=== PATIENT | female | born 1985 | race Caucasian/White ===

== ENCOUNTER 2016-10-07 13:37 | Emergency (ER) | payer OTHER, MEDICAID ==
[2016-10-07 14:16] VITALS: BP 102/63
--- NOTE | 2016-10-07 15:08 | UC ---
Throat Pain/Nasal Antony HPI - HPI Summary HPI Summary: pain on right side of face,sinus congestion, fever and 8 weeks - History of Current Complaint Chief Complaint: UCGeneralIllness Stated Complaint: FLU COMPLAINT Time Seen by Provider: 10/07/16 14:30 Hx Obtained From: Patient Hx Last Menstrual Period: 07/31/16 ?: Yes Onset/Duration: Sudden Onset, Lasting Days Severity: Moderate Pain Intensity: 6 Pain Scale Used: 0-10 Numeric Associated Signs & Symptoms: Positive: Sinus Discomfort, Nasal Discharge, Fever - Epiglottits Risk Factors Epiglottis Risk Factors: Negative - Allergies/Home Medications Allergies/Adverse Reactions: Allergies Allergy/AdvReac Type Severity Reaction Status Date / Time Latex Allergy Mild Hives Verified 03/30/16 08:33 Morphine Allergy Mild Hives/ Verified 03/30/16 08:33 VOMITING Bacitracin [From Neosporin] Allergy Hives Verified 03/30/16 08:33 Hydrocortisone Allergy Hives Verified 03/30/16 08:33 Neomycin [From Neosporin] Allergy Hives Verified 03/30/16 08:33 Polymyxin B [From Neosporin] Allergy Hives Verified 03/30/16 08:33 Home Medications: Home Medications Folic Acid TAB* [Folvite TAB*] 1 tab PO 10/07/16 [History] PMH/Surg Hx/FS Hx/Imm Hx Previously Healthy: Yes Endocrine History Of: Denies: Diabetes, Thyroid Disease Cardiovascular History Of: Denies: Cardiac Disorders, Hypertension Respiratory History Of: Denies: COPD, Asthma GI/ History Of: Denies: Ulcer - Surgical History Surgical History: Yes Surgery Procedure, Year, and Place: T&A - Family History Known Family History: Positive: Hypertension - Social History Alcohol Use: None Substance Use Type: None Smoking Status (MU): Former Smoker Type: Cigarettes Amount Used/How Often: 1/2 PPD Length of Time of Smoking/Using Tobacco: 15 YEARS Have You Smoked in the Last Year: Yes - Immunization History Most Recent Influenza Vaccination: declined Most Recent Tetanus Shot: pt declined during ; may do post- Most Recent Pneumonia Vaccination: n/a Review of Systems Constitutional: Fever, Fatigue Skin: Negative Eyes: Negative ENT: Nasal Discharge Respiratory: Cough Cardiovascular: Negative Gastrointestinal: Negative Genitourinary: Negative Motor: Negative Neurovascular: Negative Musculoskeletal: Negative Neurological: Headache Psychological: Negative All Other Systems Reviewed And Are Negative: Yes Physical Exam Triage Information Reviewed: Yes Appearance: Well-Nourished, Ill-Appearing, Pain Distress Vital Signs: Initial Vital Signs Temp 100.5 F 10/07/16 14:10 Pulse 78 10/07/16 14:10 Resp 18 10/07/16 14:10 BP 102/63 10/07/16 14:10 Pulse Ox 100 10/07/16 14:10 Vital Signs Reviewed: Yes Eye Exam: Normal Eyes: Positive: Conjunctiva Clear ENT Exam: Normal ENT: Positive: Normal ENT inspection, Pharyngeal erythema, Nasal congestion, Nasal drainage, TMs normal, Tonsillar swelling, Muffled/hoarse voice Dental Exam: Normal Neck exam: Normal Neck: Positive: Supple, Nontender, No Lymphadenopathy Respiratory Exam: Normal Respiratory: Positive: Chest non-tender, Lungs clear, Normal breath sounds Cardiovascular Exam: Normal Cardiovascular: Positive: RRR, No Murmur, Pulses Normal Abdominal Exam: Normal Abdomen Description: Positive: Nontender, No Organomegaly, Soft Bowel Sounds: Positive: Present Musculoskeletal Exam: Normal Musculoskeletal: Positive: Strength Intact, ROM Intact, No Edema Neurological Exam: Normal Neurological: Positive: Alert, Muscle Tone Normal Psychological Exam: Normal Skin Exam: Normal Throat Pain/Nasal Course/Dx - Course Course Of Treatment: hx obtained, exam performed, medications prescribed. - Differential Dx/Diagnosis Differential Diagnosis/HQI/PQRI: Influenza, Laryngitis, Pharyngitis, Sinusitis, Tonsillitis, URI Provider Diagnoses: sinusitis Discharge - Discharge Plan Condition: Stable Disposition: HOME Prescriptions: Amoxicillin/Clavulanate TAB* [Augmentin TAB 875*] 875 mg PO BID #20 tab Patient Education Materials: Sinusitis (ED) Referrals: Non Staff,Doctor [Primary Care Provider] - Additional Instructions: take the medication as prescribed. Increase your fluid intake and get plenty of rest. follow up with your primary doctor if symptoms worsen.
== END 2016-10-07 15:33 | disposition home or self-care (01) ==
LOC: UCEAST 13:37
DX: O26.891 Other specified pregnancy related conditions, first trimester (principal); Z3A.08 8 weeks gestation of pregnancy; J32.9 Chronic sinusitis, unspecified; Z88.5 Allergy status to narcotic agent; Z88.8 Allergy status to other drugs, medicaments and biological substances; Z87.891 Personal history of nicotine dependence
CPT/HCPCS: 99212; G0463

== ENCOUNTER → 2017-02-02 16:39 | Emergency (ER) | payer OTHER ==
[2017-02-02 18:40] VITALS: BP 100/54
== END | disposition left against medical advice (07) ==
LOC: ED 16:39
DX: O26.92 Pregnancy related conditions, unspecified, second trimester (principal); Z3A.27 27 weeks gestation of pregnancy; R10.9 Unspecified abdominal pain; Z53.20 Procedure and treatment not carried out because of patient's decision for unspecified reasons
CPT/HCPCS: 99281

== ENCOUNTER 2017-05-01 21:20 | Inpatient (IN) | payer OTHER ==
[2017-05-01 22:24] LABS: Hematocrit 35 % (35-47); Mean Corpuscular HGB Conc 34 g/dl (31-36); Mean Corpuscular Hemoglobin 30 pg (27-31); Mean Corpuscular Volume 89 fL (80-97); Mean Platelet Volume 11 um3 (7.4-10.4); Red Blood Count 3.97 10^6/ul (4.0-5.4); Red Cell Distribution Width 13 % (10.5-15); White Blood Count 11.7 10^3/ul (3.5-10.8)
[2017-05-01] MEDS ORDERED: OBEPIDURAL* 250 ML ONE (22:28)
[2017-05-01] MEDS ORDERED: Famotidine TAB* 20 MG PO PRN (22:59)
[2017-05-01] MEDS ORDERED: Sodium Citrate/Citric Acid* 15 ML UDC PO PRN (22:59)
[2017-05-01] MEDS ORDERED: Phenylephrine IV* 40 MCG/ML 10 ML SYRINGE IV PUSH PRN ×2 (22:59)
[2017-05-02] MEDS ORDERED: Oxytocin in LR* 20 UNITS/1,000 ML BAG IVPB SCH ×2 (02:00→05:24)
[2017-05-02] MEDS ORDERED: Oxytocin in LR* 20 UNITS/1,000 ML BAG IVPB ONE (02:03)
[2017-05-02] MEDS ORDERED: Acetaminophen TAB* 325 MG PO PRN (05:21)
[2017-05-02] MEDS ORDERED: Dibucaine 1% 28.35 GM TUBE PR PRN (05:21)
[2017-05-02] MEDS ORDERED: Glycerin ADULT SUPP PR PRN (05:21)
[2017-05-02] MEDS ORDERED: oxyCODONE/Acetamin 5/325 MG* TAB PO PRN (05:21)
[2017-05-02] MEDS ORDERED: Witch Hazel PAD* JAR TOPICAL PRN (05:21)
[2017-05-02] MEDS ORDERED: Ibuprofen TAB* 600 MG ONE (05:48)
[2017-05-02] MEDS: Ibuprofen TAB* 600 MG PO PRN ×3 (05:52→19:25)
[2017-05-02] MEDS: OBEPIDURAL* 250 ML EPIDURAL SCH (06:20)
[2017-05-02] MEDS ORDERED: Phenylephrine IV* 40 MCG/ML 10 ML SYRINGE ONE (07:24)
[2017-05-02] MEDS: Docusate CAP* 100 MG PO SCH ×3 (09:34→19:26)
[2017-05-03] MEDS: OBEPIDURAL* 250 ML EPIDURAL SCH (04:55)
[2017-05-03] MEDS: Ibuprofen TAB* 600 MG PO PRN (06:02)
[2017-05-03 06:36] LABS: Hematocrit 30 % (35-47); Hemoglobin 10.3 g/dl (12.0-16.0); Mean Corpuscular HGB Conc 35 g/dl (31-36); Mean Corpuscular Hemoglobin 31 pg (27-31); Mean Corpuscular Volume 89 fL (80-97); Mean Platelet Volume 10 um3 (7.4-10.4); Red Blood Count 3.35 10^6/ul (4.0-5.4); Red Cell Distribution Width 13 % (10.5-15); White Blood Count 10.5 10^3/ul (3.5-10.8)
[2017-05-03 08:19] VITALS: BP 121/57
[2017-05-03] MEDS: Docusate CAP* 100 MG PO SCH (08:46)
[2017-05-03] MEDS ORDERED: Ferrous Gluconate TAB* 324 MG TAB PO SCH (09:00)
== END 2017-05-03 13:25 | disposition home or self-care (01) | DRG 560 ==
LOC: MCHOBOUT 21:20 → MCHOB 22:08
PROVIDERS: ADMIT Midwife; ATTEND Midwife
PROC: 10E0XZZ Delivery of Products of Conception, External Approach (ICD-10-PCS; principal; 2017-05-02)
PROC: 10907ZC Drainage of Amniotic Fluid, Therapeutic from Products of Conception, Via Natural or Artificial Opening (ICD-10-PCS; 2017-05-02)
PROC: 0HQ9XZZ Repair Perineum Skin, External Approach (ICD-10-PCS; 2017-05-02)
DX: O70.0 First degree perineal laceration during delivery (principal); Z88.5 Allergy status to narcotic agent; Z3A.39 39 weeks gestation of pregnancy; Z37.0 Single live birth; Z88.8 Allergy status to other drugs, medicaments and biological substances; Z91.030 Bee allergy status; Z91.040 Latex allergy status
CPT/HCPCS: 36415; 85025; 85027; 86850; 86900; 86901; A9270-GY

== ENCOUNTER 2017-06-28 07:35 | Emergency (ER) | payer OTHER ==
[2017-06-28 07:57] VITALS: BP 96/69
--- NOTE | 2017-06-28 11:23 | UC ---
Stormy Horan Emily, scribed for Kristy Lake DO on 06/28/17 at 0812 . Dental HPI - HPI Summary HPI Summary: This patient is a 32 year old F presenting to urgent care with a chief complaint of lower right tooth pain that began 2 days ago. The CC is described as a throbbing ache. The patient rates the pain 6/10 in severity. Symptoms aggravated by nothing. Symptoms alleviated by ibuprofen, ice, and salt water rinse. Patient reports swelling. Pt denies fevers, chills, CP, and SOB. Pt reports breaking this tooth 4 years prior to this visit. Medications reviewed this visit. - History of Current Complaint Chief Complaint: UCDentalProblem Stated Complaint: DENTAL PAIN Hx Obtained From: Patient Hx Last Menstrual Period: 07/08/2016 Onset/Duration: Sudden Onset, Lasting Days, Still Present Severity: Moderate Pain Intensity: 6 Pain Scale Used: 0-10 Numeric Aggravating Factor(s): Nothing Alleviating Factor(s): Other (see comments) - OTC meds, ice, and salt water rinse - Allergies/Home Medications Allergies/Adverse Reactions: Allergies Allergy/AdvReac Type Severity Reaction Status Date / Time Latex Allergy Mild Hives Verified 05/01/17 21:47 Morphine Allergy Mild Hives/ Verified 05/01/17 21:47 VOMITING Bacitracin [From Neosporin] Allergy Hives Verified 05/01/17 21:47 Hydrocortisone Allergy Hives Verified 05/01/17 21:47 Neomycin [From Neosporin] Allergy Hives Verified 05/01/17 21:47 Polymyxin B [From Neosporin] Allergy Hives Verified 05/01/17 21:47 Home Medications: Home Medications Cephalexin CAP* [Keflex 500 CAP*] 06/28/17 [History] Ibuprofen TAB* [Motrin TAB* 800 MG] 800 mg PO ONCE 06/28/17 [History Confirmed 06/28/17] PMH/Surg Hx/FS Hx/Imm Hx Previously Healthy: Yes Endocrine History: Other Other Endocrine History: Negative diabetes Cardiovascular History: Other Other Cardiovascular History: Negative HTN and valvular disease - Surgical History Surgical History: Yes Surgery Procedure, Year, and Place: T&A - Family History Known Family History: Positive: Hypertension, Diabetes - Social History Occupation: Unemployed Lives: With Family Alcohol Use: None Substance Use Type: None Smoking Status (MU): Light Every Day Tobacco Smoker Type: Cigarettes Amount Used/How Often: 2 cigs per day Length of Time of Smoking/Using Tobacco: 15 YEARS Have You Smoked in the Last Year: No Household Exposure Type: Cigarettes - Immunization History Most Recent Influenza Vaccination: declined Most Recent Tetanus Shot: pt declined during ; may do post- Most Recent Pneumonia Vaccination: n/a Review of Systems Constitutional: Other - Negative fever and chils ENT: Dental Pain Respiratory: Other - Negative SOB Cardiovascular: Other - Negative CP All Other Systems Reviewed And Are Negative: Yes Physical Exam Triage Information Reviewed: Yes Appearance: Well-Appearing, No Pain Distress, Well-Nourished Vital Signs: Initial Vital Signs Temp 97.6 F 06/28/17 07:46 Pulse 80 06/28/17 07:46 Resp 16 06/28/17 07:46 BP 96/69 06/28/17 07:46 Pulse Ox 97 06/28/17 07:46 Vital Signs Reviewed: Yes Eyes: Positive: Conjunctiva Clear. Negative: Discharge ENT: Positive: Hearing grossly normal. Negative: Muffled/hoarse voice Dental: Positive: Other: - Obvious swelling over the right mandible. The gingiva on her tooth number 31 is tender and swollen. Neck exam: Normal Neck: Positive: Supple Respiratory: Positive: Lungs clear, Normal breath sounds, No respiratory distress, No accessory muscle use Cardiovascular: Positive: RRR, No Murmur Musculoskeletal Exam: Normal Neurological: Positive: Alert, Muscle Tone Normal Psychological Exam: Normal Psychological: Positive: Age Appropriate Behavior Skin Exam: Normal Skin: Positive: Other - Warm, Dry, Normal Color Dental Complaint Course/Dx - Course Course Of Treatment: This patient is a 32 year old F presenting to urgent care with a chief complaint of lower right tooth pain that began 2 days ago. The CC is described as a throbbing ache. The patient rates the pain 6/10 in severity. Symptoms aggravated by nothing. Symptoms alleviated by ibuprofen, ice, and salt water rinse. Patient reports swelling. Pt denies fevers, chills, CP, and SOB. Pt reports breaking this tooth 4 years prior to this visit. Medications reviewed this visit. Physical Exam Findings. Obvious swelling over the right mandible. The gingiva on her tooth number 31 is tender and swollen. Medical Decision Making. The Patient has been encouraged to quit smoking. Patient will be discharged with prescription for Augmentin and follow up from PCP. The patient is agreeable with this plan. - Differential Dx/Diagnosis Provider Diagnoses: Tooth ache Discharge - Discharge Plan Condition: Stable Disposition: HOME Prescriptions: Amoxicillin/Clavulanate TAB* [Augmentin TAB 875*] 875 mg PO BID #20 tab Patient Education Materials: Toothache (ED) Referrals: Ronaldo Cote NP [Primary Care Provider] - If Needed Additional Instructions: AUGMENTIN: Augmentin is a mixture of amoxicillin and clavulanate. Amoxicillin is a member of the penicillin family. It covers the germs likely to cause ear, bronchial, and urinary infections better than plain penicillin. The addition of clavulanate allows it to cover staph infections of the skin, as well as resistant cases of ear and sinus infections. Your physician has chosen Augmentin for you because of the special nature of your situation. Augmentin is best taken with meals. Nausea after taking the medication is rare, but can occur. Diarrhea can occur, particularly in small children. Vaginal yeast infections, and oral thrush in infants are also common. Contact your physician if these problems occur. Allergy to penicillins is common. If you have had an allergic reaction to any drug of the penicillin family, you should never take any other penicillin. Notify your doctor at once if you develop hives, shortness of breath, swelling, or faintness. ANYTIME YOU TAKE AN ANTIBIOTIC, IT IS IMPORTANT TO REPLENISH THE BODY'S SUPPLY OF "GOOD BACTERIA." YOU CAN GET GOOD BACTERIA FROM HIGH QUALITY CULTURED FOODS SUCH LOCAL YOGURT, SOUR KRAUT, LEILANI MARTÍN, NATURALLY FERMENTED PICKLES AND PROBIOTIC DRINKS. YOU CAN ALSO GET GOOD BACTERIA FROM A PROBIOTIC SUPPLEMENT. The documentation as recorded by the Stormy ratliff Emily accurately reflects the service I personally performed and the decisions made by , Kristy Lake DO.
== END 2017-06-28 08:32 | disposition home or self-care (01) ==
LOC: UCEAST 07:35
DX: K08.89 Other specified disorders of teeth and supporting structures (principal); F17.210 Nicotine dependence, cigarettes, uncomplicated; Z88.6 Allergy status to analgesic agent; Z88.1 Allergy status to other antibiotic agents; Z88.8 Allergy status to other drugs, medicaments and biological substances
CPT/HCPCS: 99212; G0463

== ENCOUNTER 2019-07-29 09:16 | Emergency (ER) | payer OTHER ==
[2019-07-29 09:37] VITALS: BP 98/63
--- NOTE | 2019-07-29 10:19 | UC ---
Throat Pain/Nasal Antony HPI - HPI Summary HPI Summary: The patient is a 34-year-old female that presents here with a two-week history of nasal congestion postnasal drip sore throat and bilateral otalgia. She has had an intermittent fever. She denies any chest pain or shortness of breath. She denies any nausea vomiting or diarrhea. - History of Current Complaint Chief Complaint: UCRespiratory Stated Complaint: SORE THROAT Time Seen by Provider: 07/29/19 09:57 Hx Obtained From: Patient Hx Last Menstrual Period: 07/11/19 Onset/Duration: Gradual Onset, Lasting Weeks Severity: Moderate Pain Intensity: 3 Pain Scale Used: 0-10 Numeric Cough: None Associated Signs & Symptoms: Positive: Sinus Discomfort, Nasal Discharge - Epiglottits Risk Factors Epiglottis Risk Factors: Negative - Allergies/Home Medications Allergies/Adverse Reactions: Allergies Allergy/AdvReac Type Severity Reaction Status Date / Time bacitracin Allergy Hives Verified 07/29/19 09:38 [From Neosporin ([id number])] hydrocortisone Allergy Hives Verified 07/29/19 09:38 latex Allergy Hives Verified 07/29/19 09:38 neomycin Allergy Hives Verified 07/29/19 09:38 [From Neosporin ([id number])] polymyxin B Allergy Hives Verified 07/29/19 09:38 [From Neosporin ([id number])] Home Medications: Home Medications l-Norgest/E.estradiol-E.estrad [Seasonique] 1 tab PO DAILY 07/29/19 [History Confirmed 07/29/19] PMH/Surg Hx/FS Hx/Imm Hx Previously Healthy: Yes - Surgical History Surgical History: Yes Surgery Procedure, Year, and Place: T&A - Family History Known Family History: Positive: Hypertension, Diabetes Negative: Cardiac Disease, Renal Disease, Respiratory Disease - Social History Alcohol Use: None Substance Use Type: None Smoking Status (MU): Light Every Day Tobacco Smoker Type: Cigarettes Amount Used/How Often: 2 cigs per day Length of Time of Smoking/Using Tobacco: 15 YEARS Have You Smoked in the Last Year: No Household Exposure Type: Cigarettes - Immunization History Most Recent Influenza Vaccination: declined Most Recent Tetanus Shot: pt declined during ; may do post- Most Recent Pneumonia Vaccination: n/a Review of Systems All Other Systems Reviewed And Are Negative: Yes Constitutional: Positive: Negative Skin: Positive: Negative Eyes: Positive: Negative ENT: Positive: Sore Throat, Ear Ache, Nasal Discharge, Sinus Congestion, Sinus Pain/Tenderness Respiratory: Positive: Negative Cardiovascular: Positive: Negative Gastrointestinal: Positive: Negative Genitourinary: Positive: Negative Motor: Positive: Negative Neurovascular: Positive: Negative Musculoskeletal: Positive: Negative Neurological: Positive: Negative Psychological: Positive: Negative Physical Exam Triage Information Reviewed: Yes Appearance: Well-Appearing, No Pain Distress, Well-Nourished Vital Signs: Initial Vital Signs Temp 97.9 F 07/29/19 09:33 Pulse 74 07/29/19 09:33 Resp 18 07/29/19 09:33 BP 98/63 07/29/19 09:33 Pulse Ox 100 07/29/19 09:33 Vital Signs Reviewed: Yes Eyes: Positive: Conjunctiva Clear ENT: Positive: Hearing grossly normal, Pharyngeal erythema, Nasal congestion, Nasal drainage, TM dull - retracted bilat, Hoarse voice, Sinus tenderness, Uvula midline Dental Exam: Normal Neck: Positive: Supple, Nontender, No Lymphadenopathy Respiratory: Positive: Lungs clear, Normal breath sounds, No respiratory distress, No accessory muscle use, Respiratory distress Cardiovascular: Positive: RRR, No Murmur Musculoskeletal: Positive: ROM Intact, No Edema Neurological: Positive: Alert Psychological Exam: Normal Skin Exam: Normal Diagnostics - Laboratory Lab Results: strep - Throat Pain/Nasal Course/Dx - Differential Dx/Diagnosis Provider Diagnosis: Acute sinusitis Discharge ED - Sign-Out/Discharge Documenting (check all that apply): Patient Departure All imaging exams completed and their final reports reviewed: No Studies - Discharge Plan Condition: Stable Disposition: HOME Prescriptions: Amoxicillin PO (*) [Amoxicillin 875 MG (*)] 875 mg PO BID #14 tab Patient Education Materials: Sinusitis (ED) Referrals: Ronaldo Cote NP [Primary Care Provider] - If Needed - Billing Disposition and Condition Condition: STABLE Disposition: Home - Attestation Statements Provider Attestation: chart reviewed
== END 2019-07-29 10:52 | disposition home or self-care (01) ==
LOC: UCEAST 09:16
DX: J32.9 Chronic sinusitis, unspecified (principal); J02.9 Acute pharyngitis, unspecified; H92.03 Otalgia, bilateral; Z88.1 Allergy status to other antibiotic agents; Z91.040 Latex allergy status; F17.210 Nicotine dependence, cigarettes, uncomplicated
CPT/HCPCS: 87651; 99212; G0463

== ENCOUNTER 2021-03-11 10:47 | Inpatient (IN) ==
[2021-03-11] MEDS ORDERED: Lactated Ringers 1000 ml BAG 1,000 ML IV ONE (11:01)
[2021-03-11 11:52] LABS: ABS Eosinophils 0.1 10^3/ul (0-0.6); ABS Lymphocytes 1.1 10^3/ul (1.0-4.8); ABS Monocytes 0.8 10^3/ul (0-0.8); ABS Neutrophils 5.8 10^3/ul (1.5-7.7); Eosinophil % 0.8 %; Hematocrit 30 % (35-47); Hemoglobin 10.2 g/dL (12.0-16.0); Lymphocyte % 13.9 %; Mean Corpuscular HGB Conc 34 g/dL (31-36); Mean Corpuscular Hemoglobin 30 pg (27-31); Mean Corpuscular Volume 88 fL (80-97); Platelet Count 137 10^3/uL (150-450); Red Blood Count 3.38 10^6 /uL (3.70-4.87); Red Cell Distribution Width 13 % (10-15); White Blood Count 7.8 10^3/uL (3.5-10.8)
[2021-03-11 12:22] LABS: Urine Benzodiazepine Screen None Detected (None Detect); Urine Cannabinoids Screen None Detected (None Detect); Urine Opiates Screen None Detected (None Detect)
[2021-03-11] MEDS ORDERED: Oxytocin in LR 20 UNITS/1,000 ML BAG IVPB SCH (18:00)
[2021-03-11] MEDS: Lactated Ringers 1000 ml BAG 1,000 ML IV SCH ×3 (20:06→23:38)
[2021-03-11] MEDS ORDERED: OBEPIDURAL 250 ML EPIDURAL ONE (20:11)
[2021-03-11] MEDS ORDERED: Lactated Ringers 500 ml BAG 500 ML IV PRN (21:25)
[2021-03-11] MEDS ORDERED: OBEPIDURAL 250 ML EPIDURAL SCH (22:00)
[2021-03-11 22:08] LABS: Urine Appearance Clear; Urine Bilirubin Negative (Negative); Urine Blood 1+ (Negative); Urine Color Straw; Urine Glucose Negative (Negative); Urine Ketones Negative (Negative); Urine Nitrite Negative (Negative); Urine Protein 1+(30 mg/dL) (Negative); Urine Specific Gravity 1.008 (1.002-1.030); Urine Urobilinogen Negative (Negative)
[2021-03-11 22:10] LABS: Urine Bacteria Absent (Absent); Urine Red Blood Cell Trace(0-2/hpf) (Absent); Urine Squamous Epithelial Cell Present (Absent); Urine White Blood Cell Trace(0-5/hpf) (Absent)
[2021-03-12] MEDS ORDERED: ceFOXitin 2 GM IVPREMIX 2 GM/50 ML BAG IVPB ONE (04:04)
[2021-03-12] MEDS ORDERED: Lidocaine 2% w/ EPI 1:200,000 MPF 20 ML SDV VIAL ONE (04:15)
[2021-03-12] MEDS ORDERED: fentaNYL 100 mcg/2 ml 50 MCG/ML VIAL ONE ×2 (04:15→05:27)
[2021-03-12] MEDS ORDERED: Ondansetron 4 mg VIAL 2 MG/ML 2 ml VIAL ONE ×2 (04:25→05:32)
[2021-03-12] MEDS ORDERED: Sodium Citrate/Citric Acid LIQ 15 ML UDC ONE (04:25)
[2021-03-12] MEDS ORDERED: Oxytocin 10 UNITS/ML 1 ML VIAL ONE (05:09)
[2021-03-12] MEDS ORDERED: Phenylephrine 40 mcg/mL 10mL (400mcg) SYRINGE ONE (05:09)
[2021-03-12] MEDS ORDERED: Morphine PF AMP (0.5MG/ML) 5 MG/10 ML AMP ONE (05:24)
[2021-03-12] MEDS ORDERED: fentaNYL 100 mcg/2 ml 50 MCG/ML VIAL IV PRN (05:46)
[2021-03-12] MEDS ORDERED: Ondansetron 4 mg VIAL 2 MG/ML 2 ml VIAL IV PRN ×2 (05:46→05:49)
[2021-03-12] MEDS ORDERED: Naloxone 0.4 mg VIAL 0.4 mg/ml 1 ml VIAL IV PRN ×2 (05:46→05:49)
[2021-03-12] MEDS ORDERED: diPHENhydraMINE IV 50 MG/ML 1 ml VIAL (BENADRYL) IV PRN (05:49)
[2021-03-12] MEDS ORDERED: oxyCODONE/Acetamin 5/325 mg TAB PO PRN (05:49)
[2021-03-12] MEDS ORDERED: DiMENhydriNATE IV 50 mg/ml 1 ml VIAL ONE (05:56)
[2021-03-12] MEDS ORDERED: EPHEDrine (Pressors) 50 MG/ML VIAL ONE (05:57)
[2021-03-12 06:08] LABS: Urine Appearance Cloudy; Urine Bacteria 1+ (Absent); Urine Bilirubin Negative (Negative); Urine Blood 3+ (Negative); Urine Glucose Negative (Negative); Urine Ketones Negative (Negative); Urine Nitrite Negative (Negative); Urine Protein 3+(>=500 mg/dL) (Negative); Urine Red Blood Cell 3+(>10/hpf) (Absent); Urine Specific Gravity 1.017 (1.002-1.030); Urine Squamous Epithelial Cell Present (Absent); Urine Urobilinogen Negative (Negative); Urine White Blood Cell 3+(>20/hpf) (Absent)
[2021-03-12 06:13] LABS: Urine Color Red
[2021-03-12] MEDS ORDERED: Witch Hazel PAD JAR TOPICAL PRN (06:14)
[2021-03-12] MEDS ORDERED: Lactated Ringers 1000 ml BAG 1,000 ML IV SCH (07:00)
[2021-03-12] MEDS: oxyCODONE/Acetamin 5/325 mg TAB PO PRN ×2 (07:56→22:03)
[2021-03-12] MEDS ORDERED: Dibucaine 1% OINT 28.35 GM TUBE ONE (12:06)
[2021-03-12] MEDS ORDERED: Dibucaine 1% OINT 28.35 GM TUBE PR PRN (13:59)
[2021-03-13 05:35] LABS: ABS Eosinophils 0.1 10^3/ul (0-0.6); ABS Lymphocytes 1.2 10^3/ul (1.0-4.8); ABS Monocytes 0.9 10^3/ul (0-0.8); ABS Neutrophils 8.3 10^3/ul (1.5-7.7); Eosinophil % 0.7 %; Hematocrit 23 % (35-47); Lymphocyte % 11.3 %; Mean Corpuscular HGB Conc 35 g/dL (31-36); Mean Corpuscular Hemoglobin 31 pg (27-31); Mean Corpuscular Volume 89 fL (80-97); Mean Platelet Volume 9.8 fL (7.4-10.4); Platelet Count 128 10^3/uL (150-450); Red Blood Count 2.61 10^6 /uL (3.70-4.87); Red Cell Distribution Width 13 % (10-15); White Blood Count 10.4 10^3/uL (3.5-10.8)
[2021-03-14 08:09] VITALS: BP 121/72
[2021-03-14] MEDS ORDERED: Tetan/Diph/Pertus SYR(Tdap) 0.5 ML SYR(BOOSTRIX) use SYR contains LATEX IM ONE (12:14)
[2021-03-15] MEDS ORDERED: Scopolamine PATCH Remove NOTE PATCH OFF PRN (05:30)
== END 2021-03-14 15:15 | disposition home or self-care (01) | DRG 540 ==
LOC: MCHOBOUT 10:47 → MCHOB 11:05
PROVIDERS: ADMIT Midwife; ATTEND Obstetrics & Gynecology